=== PATIENT | male | born 1965 ===

== ENCOUNTER 2021-07-29 09:53 | Inpatient (IN) | payer BC, SELFPAY ==
[2021-07-29] VITALS (37 sets, daily range): BP systolic 101–157; BP diastolic 54–106; PULSE 69–83; RESP 7–21; TEMP 36.3–37.1; O2SAT 98–100
--- NOTE | ~2021-07-29 | US_ITS ---
EXAMINATION: US carotid duplex BI DATE: 07/29/2021 15:44 INDICATION: Confusion. TECHNIQUE: Grayscale, color Doppler, and pulsed Doppler images of the cervical carotid arteries were obtained. The degree of vessel stenosis is placed in one of the following categories: normal, <50%, 5 0-69%, >=70% but less than near-occlusion, near-occlusion, or total occlusion. Note that percent sten osis relative to normal distal artery lumen diameter is indirectly measured from velocity measurement s as described by Adi, et al. Radiology 2003; 229:340-346. Notes: Normal: Peak systolic velocity <125 centimeters/sec and no plaque <50%. Peak systolic velocity <125 ( EDV <40; ICA/CCA PSV ratio <2.0; used these factors only a tandem lesions or low cardiac output or co ntralateral disease) 50-69 %: PSV 125-230 (EDV 40-100; ratio 2-4) >= 70% but less than near occlusion: PSV greater than 230 (EDV > 100; ratio> 4.0) Near Occlusion: PSV that is variable; markedly narrowed lumen Occlusion: Absent flow on color/spectral Doppler and no lumen on kat scale. COMPARISON: None. FINDINGS: RIGHT: The right common carotid artery (CCA) peak systolic velocity (PSV) is 74 cm/s. The right internal car otid artery (ICA) PSV is 66 cm/s. The right ICA end-diastolic velocity (EDV) is 29 cm/s. The right IC A/CCA PSV ratio is 0.9. The external carotid artery (ECA) PSV is 46 cm/s. There is antegrade flow in the right vertebral artery. LEFT: The left CCA PSV is 79 cm/s. The left ICA PSV is 51 cm/s. The left ICA EDV is 23 cm/s. The left ICA/C CA PSV ratio is 0.7. The ECA PSV is 39 cm/s. There is antegrade flow in the left vertebral artery. IMPRESSION: 1. Less than 50% stenosis in the right internal carotid artery by sonographic criteria. 2. Less than 50% stenosis in the left internal carotid artery by sonographic criteria. Reviewed, dictated and finalized at location A. SPRING BARREL ASSEMBLY CLEANER IMPRESSION: 1. Less than 50% stenosis in the right internal carotid artery by sonographic rickey diaz. 2. Less than 50% stenosis in the left internal carotid artery by sonographic loretta ho.
--- NOTE | ~2021-07-29 | CT_ITS ---
EXAMINATION: CT soft tissue neck chest w DATE: 07/30/2021 08:46 INDICATION: Left neck pain. TECHNIQUE: Computed tomography (CT) of the neck and chest was performed with 75 mL Omnipaque-350 intr avenous contrast. Automated exposure control and iterative reconstruction technique were employed. Th e dose-length product was 1178.35 mGy-cm. COMPARISON: None FINDINGS: CT NECK: There are no pathologically enlarged lymph nodes. There is mild plaque in the proximal inter nal carotid arteries with 0% stenosis relative to normal distal artery lumen diameters. There is muco jesse thickening in the paranasal sinuses. The mastoid air cells are normal. There is moderate cervical spondylosis. CT CHEST: The lungs demonstrate mild atelectasis. A calcified left lung nodule is consistent with old granulomatous disease. No pleural effusion. The heart size is normal. No pericardial effusion. There are gallstones in the gallbladder, which is normal in size. There are no pathologically enlarged lym ph nodes. There is thoracic dextrocurvature and mild spondylosis. IMPRESSION: 1. Moderate cervical spondylosis. 2. Cholelithiasis. No evidence of acute cholecystitis. Reviewed, dictated and finalized at location A. D CENTER ASSISTANT
--- NOTE | ~2021-07-29 | XR_ITS ---
EXAMINATION: XR chest 1V portable DATE: 07/29/2021 13:29 INDICATION: Altered mental status. Fever and dizziness. TECHNIQUE: A single frontal view of the chest was obtained. COMPARISON: None. FINDINGS: A calcified left lung nodule is consistent with old granulomatous disease. No pleural effus ion or pneumothorax. The heart size is normal. IMPRESSION: 1. No acute cardiopulmonary disease. Reviewed, dictated and finalized at location A. ODS STUDY ANALYST
--- NOTE | ~2021-07-29 | MR_ITS ---
EXAMINATION: MR brain/brain stem wo/w con DATE: 07/30/2021 08:30 INDICATION: Altered mental status. TECHNIQUE: Magnetic resonance imaging (MRI) of the brain and brainstem was performed without and with 20 mL MultiHance intravenous contrast. Sequences included sagittal and axial T1-weighted FSE, axial diffusion-weighted FS EPI, axial T2*-weighted GRE, axial T2-weighted FLAIR Propeller, and axial T2-we ighted Propeller. Postcontrast sequences included axial and coronal T1-weighted FSE. Apparent diffusi on coefficient (ADC) maps were created. COMPARISON: Head CT 07/29/2021 FINDINGS: There is no intracranial hemorrhage, acute infarction, or abnormal intracranial mass lesion . The ventricles are normal in size. There is mucosal thickening in the paranasal sinuses. The mastoi d air cells are normal. The orbits are normal. IMPRESSION: 1. Normal brain. Reviewed, dictated and finalized at location A. DCAST NEWS PRODUCER IMPRESSION: 1. Normal brain.
--- NOTE | ~2021-07-29 | CT_ITS ---
EXAMINATION: CTA brain carotid DATE: 07/30/2021 19:24 INDICATION: Neck pain. Altered mental status. TECHNIQUE: Computed tomographic angiography (CTA) of the head was performed without and with 100 mL O mnipaque-350 intravenous contrast. CTA of the neck was performed with intravenous contrast. Automated exposure control and iterative reconstruction technique were employed. The dose-length product was 1 930.69 mGy-cm. Maximum intensity projection and volume rendered 3D-reconstructions were created by annalee ruiz technologist on a separate workstation. COMPARISON: Head CT 07/29/2021, brain MRI 07/30/2021 FINDINGS: HEAD CTA: There is no intracranial hemorrhage, acute infarction, or abnormal intracranial mass lesion . The ventricles are normal in size. There is mucosal thickening in the paranasal sinuses. The orbits are normal. The mastoid air cells are normal. The vertebral arteries are codominant. There is no sig nificant stenosis of basilar artery or the posterior cerebral arteries. There is no significant steno sis of the intracranial internal carotid arteries or anterior or middle cerebral arteries. The sales and service agent ior communicating arteries are normal. Anterior communicating artery is normal. There is no aneurysm. NECK CTA: There are no pathologically enlarged lymph nodes. There is no significant stenosis of the v ertebral arteries. There is no visible plaque in the proximal internal carotid arteries. There is 0% stenosis of the proximal right internal carotid artery relative to normal distal artery lumen diamete r (NASCET criteria). There is 0% stenosis of the proximal left internal carotid artery relative to no rmal distal artery lumen diameter. There is mild cervical spondylosis. IMPRESSION: 1. Normal brain. No aneurysm or significant intracranial arterial stenosis. 2. 0% stenosis of the proximal internal carotid arteries relative to normal distal artery lumen diame ters (NASCET criteria). Reviewed, dictated and finalized at location A. FARMER IMPRESSION: 1. Normal brain. No aneurysm or significant intracranial arterial stenosis. 2. 0% stenosis of the proximal internal carotid arteries relative to normal dis nisha artery lumen diameters (NASCET criteria).
--- NOTE | ~2021-07-29 | XR_ITS ---
EXAMINATION: XR lumbar puncture diagnostic DATE: 07/30/2021 09:16 INDICATION: Fever. Altered mental status. TECHNIQUE: The procedure including the risks, benefits, and alternatives was discussed with the patie nt. Risks discussed included spinal headache, cerebrospinal fluid leak, bleeding, and infection. The patient understood the risks and agreed to proceed. A timeout was performed to verify the patient' s name, date of , and procedure to be performed. The skin overlying the L4-L5 level was prepped and draped in usual sterile fashion. Subcutaneous 1% lidocaine was used for local anesthesia. A 20 gauge spinal needle was advanced under fluoroscopic guidance. The needle was removed and the entry s ite was cleaned and dressed. There were no immediate complications. Fluoroscopy exposure time was 0. 1 minutes. The total number of images was 1. FINDINGS: There are changes of anterior and posterior fusion procedures from L4 to S1. Real-time fluo roscopy demonstrates the needle at the L4-L5 level. The opening pressure was 13 cm water (Normal rang e is variably defined as 6-20 cm water and up to 25 cm water in obese patients. Pressure >25 cm water is one of the modified Dandy criteria for idiopathic intracranial hypertension). 14 mL of fluid was collected in 4 tubes. The first tube was blood-tinged. IMPRESSION: 1. Successful fluoro-guided lumbar puncture with traumatic tap. Reviewed, dictated and finalized at location A. RN
--- NOTE | ~2021-07-29 | CT_ITS ---
EXAMINATION: CT brain wo con EXAM DATE: 07/29/2021 11:08 INDICATION: Dizziness. Altered mental status. TECHNIQUE: Spiral CT of the head was performed without contrast. Axial, coronal and sagittal images were reviewed. The dose-length product (DLP) for this examination was 681.00 mGy-cm. The exposure w as tailored according to patient size, and iterative reconstruction (ASIR) was used as additional dos e reduction technique. There is no prior study for comparison. FINDINGS: There is no acute intraparenchymal hemorrhage. No evidence of intraparenchymal brain mass lesion. No evidence of acute infarction. There is no mass effect or midline shift. The ventricles are normal in size. There are no extra-axial collections. There are no acute calvarial fractures. T he orbits are unremarkable. Soft tissue is unremarkable. There is right maxillary sinus window proc edure. Scattered ethmoid and maxillary retention cysts or polyps. IMPRESSION: 1. No acute intracranial findings. Reviewed, dictated and finalized at location B. Y PLAN SALES CONSULTANT
--- NOTE | 2021-07-29 10:16 | ED.GENADULT ---
HPI - General Adult General Chief complaint: Altered Mental Status Stated complaint: flu like symptoms Time Seen by Provider: 07/29/21 10:04 History of Present Illness HPI narrative: Patient is a 56-year-old male who presents ER with acute alteration mental status. Patient awoke this morning with fever. He went to work. While at work family was contacted due to him being confused. He is not oriented to date. He also was getting lost within the work facility that he has been at for 12 years. Family reports patient has had some increased forgetfulness and confusion over the last 1 to 2 months. No specific examples given. No history of dementia and family at the early age. No drug or alcohol use. No known sick contacts. Does report recent cough but no exertional shortness of breath or chest pain. No urinary symptoms. Related Data Home Medications Medication Instructions Recorded Confirmed No Home Medications 11/20/19 07/29/21 Allergies Allergy/AdvReac Type Severity Reaction Status Date / Time Penicillins Allergy Swelling Verified 07/29/21 10:53 of Lip/Tongue/Throat Review of Systems Review of Systems: All systems reviewed & are unremarkable except as noted in HPI and below ROS unobtainable: Yes other (Mild limitation due to confusion.) Constitutional: Constitutional: Denies chills, Reports fatigue and Reports fever(s) ENT: Denies nasal congestion and Denies sore throat Cardiovascular: Cardiovascular: Denies chest pain, Denies rapid heart rate and Denies radiating jaw, neck or arm pain Respiratory: Respiratory: Reports cough and Denies dyspnea Neurologic: Reports confusion, Denies headache(s), Denies focal weakness and Denies numbness PMFSH Past Medical History Medical History (Updated 07/29/21 @ 14:18 by Leon Fabian MD) Healthy male adult Surgical History Surgical History (Updated 07/29/21 @ 14:16 by Leon Fabian MD) No history of previous surgery Social History Social History (Updated 07/29/21 @ 14:16 by Leon Fabian MD) Smoking status: Never smoker Exam Narrative: GENERAL: Well-appearing, well-nourished, and in no acute distress. HEAD: Normocephalic, atraumatic. EYES: PERRL and EOMI. CHEST: Clear to auscultation. No respiratory distress. HEART: Regular rate and rhythm. Normal peripheral pulses. ABDOMEN: Soft, nontender, nondistended. EXTREMITIES: Normal range of motion. No edema. SKIN: Warm, dry, no rash. NEURO: No focal deficits. Alert and oriented x2-3. Originally did not know month/date/year and had read it off the wall. He has since been able to remember it. PSYCH: Normal mood and affect. Course Course Emergency Course: Admit for observation. Patient could have early dementia that may have been exacerbated by recent febrile illness. Will add on Covid evaluation. Patient also potentially have TIA/TGA. Will obtain MRI. Keep on telemetry. Vital Signs Vital signs: Vital Signs Temperature 98.8 F 07/29/21 10:38 Pulse Rate 76 07/29/21 10:38 Respiratory Rate 18 07/29/21 10:38 Blood Pressure 141/94 H 07/29/21 10:38 Pulse Oximetry 98 07/29/21 10:38 Temperature 98.8 F 07/29/21 10:38 Pulse Rate 74 07/29/21 15:45 Respiratory Rate 11 L 07/29/21 15:45 Blood Pressure 136/88 07/29/21 15:45 Pulse Oximetry 98 07/29/21 15:45 Medical Decision Making Vital Signs Vital Signs: Vital Signs Temperature 98.8 F 07/29/21 10:38 Pulse Rate 76 07/29/21 10:38 Respiratory Rate 18 07/29/21 10:38 Blood Pressure 141/94 H 07/29/21 10:38 Pulse Oximetry 98 07/29/21 10:38 Temperature 98.8 F 07/29/21 10:38 Pulse Rate 74 07/29/21 15:45 Respiratory Rate 11 L 07/29/21 15:45 Blood Pressure 136/88 07/29/21 15:45 Pulse Oximetry 98 07/29/21 15:45 Lab Data Result diagrams: 07/29/21 10:50 07/29/21 10:50 Labs: Lab Results 07/29/21 07/29/21 07/29/21 Range/Units 10:49 10
--- NOTE | 2021-07-29 10:37 | ECG_ITS ---
Measurements Intervals Advance Rate: 74 P: 10 CT: 146 QRS: 3 QRSD: 100 T: 34 QT: 395 QTc: 438 Interpretive Statements SINUS RHYTHM BASELINE ARTIFACT- II, III, AVR, AVF, V3-V6 NORMAL ECG Electronically Signed On 07-29-2021 11:00:15 TAPROOM ATTENDANT by Paul Ortiz D.O.
[2021-07-29 11:03] LABS: Basophils Absolute Auto 0.1 K/mm3 (0.0-0.1); Basophils Percent Auto 0.8 % (0.2-1.2); Eosinophils Absolute Auto 0.3 K/mm3 (0-0.3); Eosinophils Percent Auto 3.1 % (0-4.4); Hematocrit 52.6 % (42.0-52.0); Hemoglobin 18.1 g/dL (14.0-18.0); Immature Granulocyte Absolute 0.02 K/mm3 (0.00-0.031); Immature Granulocyte Percent A 0.2 % (0-0.5); Lymphocytes Percent Auto 21.8 % (18.3-44.2); Mean Corpuscular HGB Conc 34.4 g/dl (32-36); Mean Corpuscular Volume 92.9 fl (80-100); Mean Platelet Volume 9.5 fl (7.4-10.4); Monocytes Percent Auto 11.3 % (2.6-8.5); Neutrophils Absolute Auto 5.5 K/mm3 (1.3-6.7); Neutrophils Percent Auto 62.8 % (45.5-73.1); Platelet Count Result 276 k/mm3 (150-375); Red Blood Count 5.66 M/mm3 (4.6-6.20); Red Cell Distribution Width 13.4 % (11.5-14.5); White Blood Count 8.7 K/mm3 (4.5-10.0)
[2021-07-29 11:05] LABS: Prothrombin Time 12.8 Seconds (11.1-14.7)
[2021-07-29 11:06] LABS: Partial Thromboplastin Time 27.3 SECONDS (22.3-36.8)
[2021-07-29 11:07] LABS: Alanine Aminotransferase 35 U/L (4-50); Albumin Level 4.4 g/dL (3.5-5.1); Alkaline Phosphatase 81 U/L (38-126); Anion Gap 7 mmol/L (8-16); Aspartate Amino Transferase 33 U/L (17-59); Bilirubin,Total 0.9 mg/dL (0.2-1.3); Blood Urea Nitrogen 12 mg/dL (9-20); Calcium 9.4 mg/dL (8.4-10.2); Carbon Dioxide 24 mmol/L (22-30); Chloride 107 mmol/L (98-107); Estimated CRCL calculation 114 ml/min; Estimated Glomerular Filt Rate > 60; Glucose 99 mg/dL (65-110); Potassium 3.9 mmol/L (3.4-5.0); Sodium 138 mmol/L (137-145)
[2021-07-29 11:16] LABS: Add Urine Microscopic? NO; Appearance Urine Clear (Clear); Bilirubin Urine Negative (Negative); Blood Urine Negative (Negative); Color Urine Yellow (Yellow); Glucose Urine UA Negative (Negative); Ketones Urine Negative (Negative); Leukocyte Esterase Ur Negative LEU/UL (Negative); Nitrate Urine Negative (Negative); Protein Urine Negative (Negative); Specific Grav Ur 1.015 (1.001-1.035); Urobilinogen Urine Negative mg/dL (<2.0)
[2021-07-29] MEDS: SODIUM CHLORIDE 0.9% IV 1,000 ML 999 ML IV CONT (11:53)
--- NOTE | 2021-07-29 17:32 | PM.IMHP ---
H&P: HPI History of Present Illness Date/Time: 07/29/21 17:32 Is a 56-year-old male who came to the emergency room with altered mental status. The patient self reports fever for the last couple days. The patient got up and went to work today and felt confused when he went to work. The patient stated that he cannot recall what happened to him during the whole work week. The patient was getting loss within his work facility and he has been working there for last 12 years. Patient has no history of any dementia. He has had no sick contacts. H&H is 18.1 and 52.6. COVID testing is pending. Carotid Dopplers less than 50% stenosis in the right and left internal carotid artery. Chest x-ray was read as no acute cardiopulmonary disease. Head CT was read as no acute intracranial findings. The patient was started on IV fluids. The patient does not have a fever and was tested negative for influenza. The patient is being admitted for observation status on 07/29/2021. Chief Complaint: Confusion Review of Systems Review of Systems: All systems reviewed & are unremarkable except as noted in HPI and below Constitutional: Constitutional: Reports as per HPI and Reports no additional constitutional complaints Eyes: Eyes: Reports as per HPI and Reports no additional eye complaints ENT: Reports system reviewed and no additional complaints, except as documented and Reports Normal hearing present Cardiovascular: Cardiovascular: Reports no additional cardiovascular complaints Respiratory: Respiratory: Reports no additional respiratory complaints and Reports no additional respiratory complaints Gastrointestinal: Gastrointestinal: Reports as per HPI and Reports no additional gastrointestinal complaints Musculoskeletal: Musculoskeletal: Reports no additional musculoskeletal complaints Integumentary/Breasts: Skin/Breast: Reports system reviewed and no additional complaints, except as docu and Reports as per HPI Neurologic: Reports system reviewed and no additional complaints, except as documented, Reports as per HPI and Reports Normal hearing present Psychiatric: Psychiatric: Reports no additional psychiatric complaints and Reports as per HPI Endocrine: Endocrine: Reports no additional endocrine complaints Hematologic/Lymphatic: Hematologic/Lymphatic: Reports no additional hematologic/lymphatic complaints Allergic/Immunologic: Allergic/Immunologic: Reports no additional allergic/immunologic complaints [facility] Past Medical History Medical History Healthy male adult Surgical History Surgical History (Updated 07/29/21 @ 18:02 by Shilpi Aleman NP) History of back surgery L1 through L5 he has a cage. Family History Family History (Updated 07/29/21 @ 18:03 by Shilpi Aleman NP) Mother Cancer Father Hypertension Social History Social History (Updated 07/29/21 @ 18:05 by Shilpi Aleman NP) Social History: the patient is and lives with his he has 3 children. 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 The patient is a lifelong nonsmoker. No alcohol marijuana or Illicit drugs. Code status full code Smoking status: Never smoker Meds Home Medications and Allergies Home Medications Medication Instructions Recorded Confirmed Type No Home Medications 11/20/19 07/29/21 History Allergies Allergy/AdvReac Type Severity Reaction Status Date / Time Penicillins Allergy Swelling Verified 07/29/21 10:53 of Lip/Tongue/Throat Vital Signs Vital Signs - 24 hr 07/29/21 10:38 07/29/21 10:57 07/29/21 11:00 Temperature 37.1 C Pulse Rate 79 Respiratory Rate 17 Blood Pressure 124/102 H Pulse Oximetry 98 98 99 07/29/21 11:01 07/29/21 11:11 07/29/21 11:16 Temperature Pulse Rate 80 78 Respiratory Rate 10 L 11 L Blood Pressure 121/87 135/78 127/95 H P
--- NOTE | 2021-07-29 17:55 | PC.NURSE ---
was asked to xccplete MRI screening form for MRI, unable to d/t acuity of other patients. will try when i have a minute
[2021-07-29] MEDS: SODIUM CHLORIDE 0.9% IV 1,000 ML 100 ML IV CONT (18:43)
[2021-07-30] VITALS (7 sets, daily range): BP systolic 104–144; BP diastolic 58–104; PULSE 71–79; RESP 12–20; TEMP 36.6–36.9; O2SAT 96–99
--- NOTE | 2021-07-30 | ECHO_ITS ---
Patient Info Name: Shola Lebron Age: 56 years : 1965 Gender: Male Ht: 72 in Wt: 249 lbs BSA: 2.43 m2 HR: 75 bpm BP: 144 / 90 mmHg Exam Date: 07/30/2021 3:00 PM Exam Location: [facility] Patient Status: Outpatient Admit Date: 07/29/2021 Staff Ordering Physician: Shilpi Aleman NP Operation Shift Supervisor: Chris Jarrell RDCS, RT Attending Provider: Tyler Vivas MD Referring Physician: Ash CHRIS; Exam Type: CA echo doppler color flow Study Info Indications R42 - Dizziness and giddiness Complete two-dimensional, color flow and Doppler transthoracic echocardiogram is performed. Summary 1. Complete two-dimensional, color flow and Doppler transthoracic echocardiogram is performed. 2. Left ventricular chamber dimension is normal. 3. Left ventricular systolic function is normal, estimated at 60-65%. 4. There is mildly increased left ventricular wall thickness. 5. The left ventricular diastolic function is grade I diastolic dysfunction. 6. E/e' 5 is not elevated. 7. The aortic root size at the sinus of Valsalva is moderately dilated at 4.6 cm. Left Ventricle E/e' 5 is not elevated. Left ventricular chamber dimension is normal. Left ventricular systolic function is normal, estimated at 60-65%. There is mildly increased left ventricular wall thickness. The left ventricular diastolic function is grade I diastolic dysfunction. Right Ventricle Right ventricular chamber dimension is normal. Right ventricular systolic function is normal. Left Atria Left atrial chamber dimension is normal. Right Atria Right atrial chamber dimension is normal. Aortic Valve The aortic valve is trileaflet. There is no aortic valve stenosis. There is no aortic valve regurgitation. Pulmonic Valve There is no pulmonic regurgitation. Mitral Valve There is no mitral valve stenosis. There is no mitral valve regurgitation. Tricuspid Valve There is no tricuspid valve regurgitation. Pericardium/Pleural There is no pericardial effusion. Inferior Vena Cava Normal inferior vena cava with >50% collapse upon inspiration consistent with normal right atrial pressure, 5 mmHg. Aorta The aortic root size at the sinus of Valsalva is moderately dilated at 4.6 cm. Left Ventricular Outflow Tract Name Value Normal LVOT 2D LVOT Diameter 2.1 cm LVOT Doppler LVOT Peak Gradient 3 mmHg LVOT Mean Gradient 2 mmHg LVOT VTI 14 cm LVOT VTI/AV VTI Ratio 0.7 LVOT Stroke Volume 51 ml Mitral Valve Name Value Normal MV Doppler MV Decel Sweet [place] 167 cm/s2 MV PHT 70 ms MV Area (PHT) 3.2 cm2 4.0-5.0 MV Diastolic Function ----
--- NOTE | 2021-07-30 07:43 | PM.IMPN ---
Progress Note: A&P Assessment and Plan (1) Altered mental status: Code(s): R41.82 - Altered mental status, unspecified Status: Acute Assessment and Plan: Patient brought to the emergency room cause of confusion. Patient had fever prior to admission but not documented here. UA negative. Chest x-ray negative. CT of the brain showing no acute findings. COVID testing in process. Carotid ultrasound showing less than 50% stenosis. Consider lymphoma given physical findings. 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 Will proceed with a CT of the neck and chest. MRI of the brain has already been ordered. Blood cultures are pending. Echocardiogram is ordered. 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 Consider dehydration and/ or chronic hypoxia from undiagnosed sleep apnea. check ApneaLink. Repeat CBC. (4) DVT prophylaxis: Code(s): Z29.9 - Encounter for prophylactic measures, unspecified Status: Acute Assessment and Plan: SCDs Subjective Date/time seen: 07/30/21 07:43 Interval history: 56yo healthy male here for AMS and fever. Patient complains of headache this morning this was not of presenting complaint. 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 He had fever prior to admission not documented here. He denies feeling confused today. He has city water. No GI symptoms. He has 2 dogs but no exposures to farm animals or birds . No recent travel. No night sweats. No weight loss. He has been seeing a chiropractor for his neck pain. Exam Narrative: AF 97.8 104/58 79 17 98% ra Gen - NARD lying flat in bed HEENT - ncat. mmm. no oral lesions. Neck - left posterior cervical lymphadenopathy. No cervical or supraclavicular adenopathy appreciated. Chest - CTA bilaterally, nml RR CV - RRR S1/S2. No murmurs, gallops or rubs. Abd - Soft, NT/ND, Positive BS Ext - No pedal edema. 2+ DP pulses bilaterally. Neuro - Alert and orientedx4. Nonfocal exam. Positive Kernig sign but negative Brudzinski. Psych - Nml mood and affect Skin - Warm and dry. No rashes. Objective Data Vital Signs Vital Signs: Vital Signs - 24 hr 07/29/21 10:38 07/29/21 10:57 07/29/21 11:00 Temperature 98.8 F Pulse Rate 79 Respiratory Rate 17 Blood Pressure 124/102 H Pulse Oximetry 98 98 99 07/29/21 11:01 07/29/21 11:11 07/29/21 11:16 Temperature Pulse Rate 80 78 Respiratory Rate 10 L 11 L Blood Pressure 121/87 135/78 127/95 H Pulse Oximetry 99 100 98 07/29/21 11:17 07/29/21 11:30 07/29/21 11:31 Temperature Pulse Rate 78 74 80 Respiratory Rate 18 14 21 H Blood Pressure 139/90 Pulse Oximetry 99 100 98 07/29/21 11:45 07/29/21 11:46 07/29/21 11:47 Temperature Pulse Rate 73 73 75 Respiratory Rate 15 16 15 Blood Pressure 157/106 H Pulse Oximetry 99 99 99 07/29/21 12:00 07/29/21 12:01 07/29/21 12:26 Temperature Pulse Rate 73 83 73 Respiratory Rate 9 L 14 11 L Blood Pressure 137/103 H Pulse Oximetry 100 99 99 07/29/21 12:30 07/29/21 12:31 07/29/21 12:53 Temperature Pulse Rate 71 81 74 Respiratory Rate 14 13 20 Blood Pressure 137/96 H Pulse Oximetry 100 99 100 07/29/21 13:00 07/29/21 13:01 07/29/21 13:15 Temperature Pulse Rate 73 71 72 Respiratory Rate 7 L 14 13 Blood Pressure 141/103 H Pulse Oximetry 100 100 100 07/29/21 13:16 07/29/21 13:33 07/29/21 14:10 Temperature Pulse Rate 72 76 74 Respiratory Rate 11 L 11 L 12 Blood Pressure 127/97 H 146/99 H Pulse Oximetry 100 100 100 07/29/21 14:16 07/29/21 15:45 07/29/21 16:00 Temperature Pulse Rate
[2021-07-30 08:09] LABS: Basophils Absolute Auto 0.1 K/mm3 (0.0-0.1); Basophils Percent Auto 0.8 % (0.2-1.2); Eosinophils Absolute Auto 0.4 K/mm3 (0-0.3); Eosinophils Percent Auto 4.7 % (0-4.4); Hematocrit 51.5 % (42.0-52.0); Hemoglobin 17.6 g/dL (14.0-18.0); Immature Granulocyte Absolute 0.03 K/mm3 (0.00-0.031); Immature Granulocyte Percent A 0.3 % (0-0.5); Lymphocytes Absolute Auto 2.45 K/mm3 (0.9-3.2); Lymphocytes Percent Auto 28.4 % (18.3-44.2); Mean Corpuscular HGB Conc 34.2 g/dl (32-36); Mean Corpuscular Hemoglobin 32.6 pg (26-34); Mean Corpuscular Volume 95.4 fl (80-100); Mean Platelet Volume 9.7 fl (7.4-10.4); Monocytes Absolute Auto 0.9 K/mm3 (0.1-0.6); Monocytes Percent Auto 9.8 % (2.6-8.5); Neutrophils Absolute Auto 4.8 K/mm3 (1.3-6.7); Platelet Count Result 252 k/mm3 (150-375); Red Cell Distribution Width 13.5 % (11.5-14.5); White Blood Count 8.6 K/mm3 (4.5-10.0)
[2021-07-30 08:22] LABS: Lactic Acid Reflex 1.2 mmol/L (0.7-2.1)
[2021-07-30 09:38] LABS: Alanine Aminotransferase 32 U/L (4-50); Alkaline Phosphatase 61 U/L (38-126); Anion Gap 6 mmol/L (8-16); Aspartate Amino Transferase 32 U/L (17-59); Bilirubin,Total 1.4 mg/dL (0.2-1.3); Blood Urea Nitrogen 13 mg/dL (9-20); Calcium 8.8 mg/dL (8.4-10.2); Carbon Dioxide 26 mmol/L (22-30); Chloride 104 mmol/L (98-107); Estimated CRCL calculation 114 ml/min; Estimated Glomerular Filt Rate > 60; Glucose 94 mg/dL (65-110); Lactate Dehydrogenase 421 U/L (313-618); Magnesium 2.1 mg/dL (1.6-2.3); Potassium 4.4 mmol/L (3.4-5.0); Sodium 136 mmol/L (137-145)
[2021-07-30] MEDS: SODIUM CHLORIDE 0.9% IV 1,000 ML 100 ML IV CONT (10:27)
[2021-07-30 10:46] LABS: SARS-CoV-2 RNA PCR Negative (Negative)
[2021-07-30 11:14] LABS: Appearance CSF Clear (Clear); CSF source CSF; Color CSF Colorless (Colorless)
[2021-07-30 11:15] LABS: Lymphocytes CSF 75 % (40-80); Monocytes CSF 16 % (15-45); Neutrophils CSF 9 % (0-6)
[2021-07-30 11:16] LABS: Nucleated Cell CSF 2 /uL (0-5)
[2021-07-30 11:18] LABS: Red Blood Cell CSF 72 (0-2)
[2021-07-30 11:40] LABS: Glucose CSF 57 mg/dL (40-70); Total Protein CSF 65 mg/dL (12-60)
--- NOTE | 2021-07-30 14:03 | WPDNEURCNPN ---
Assessment and Plan Additional Plan complaints of confusion with negative general and neurological, examination, negative CT scan of the head\ CSF opening pressure was 13 on spinal tap and fluid with 72 RBCs but CSF protein 65 with glucose of 57 MRI is negative will obtain CTA to rule out the possibility of aneurysm,cta of brain ordered to r/o aneurysm Consult date: 07/30/21 HPI: Shola Lebron is a 56 year old male has been admitted to [facility] through the emergency room for the complaints of change in the mental status patient reported having the fever for the last 48 hours and on day of admission he got up and went to work felt confuse but could not recall exactly what has happened during the whole work week he was getting lost within the work facility though he has been working there for the last 12 years and also he has no history of preceding diagnosis of dementia, his initial hemoglobin was 18.1 COVID testing was pending Doppler study of the carotid revealed less than 50% stenosis bilaterally chest x-ray was negative CT scan of the head was negative patient was started on the IV fluids and he was noted to have no fever he also tested negative for influenza, past history is consistent with surgery on the back L1 through L5 with a cage and he is allergic to penicillin was not taking any medications at home Review of Systems Review of Systems: All systems reviewed & are unremarkable except as noted in HPI and below PMFSH Past Medical History Medical History Healthy male adult Surgical History Surgical History History of back surgery L1 through L5 he has a cage. Family History Family History Mother Cancer Father Hypertension Social History Social History Social History: the patient is and lives with his he has 3 children. 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 his is the durable power employment attorney for healthcare. The patient is a lifelong nonsmoker. No alcohol marijuana or Illicit drugs. Code status full code Smoking status: Never smoker Alcohol intake: never Substance use: never Substance use type: does not use Spiritual care concerns: No Meds Home Medications and Allergies Home Medications Medication Instructions Recorded Confirmed Type No Home Medications 11/20/19 07/29/21 History Allergies Allergy/AdvReac Type Severity Reaction Status Date / Time Penicillins Allergy Swelling Verified 07/29/21 18:52 of Lip/Tongue/Throat Vital Signs Vital Signs - 24 hr 07/29/21 14:10 07/29/21 14:16 07/29/21 15:45 Temperature Pulse Rate 74 70 74 Respiratory Rate 12 7 L 11 L Blood Pressure 146/99 H 138/94 H 136/88 Pulse Oximetry 100 100 98 07/29/21 16:00 07/29/21 16:15 07/29/21 16:30 Temperature Pulse Rate 76 78 70 Respiratory Rate 10 L 14 9 L Blood Pressure Pulse Oximetry 99 98 100 07/29/21 16:45 07/29/21 17:16 07/29/21 17:17 Temperature Pulse Rate 69 Respiratory Rate 17 Blood Pressure 121/91 H Pulse Oximetry 98 98 99 07/29/21 17:30 07/29/21 17:31 07/29/21 18:35 Temperature 36.3 C L Pulse Rate 80 Respiratory Rate 12 Blood Pressure 130/74 134/80 Pulse Oximetry 99 99 99 07/29/21 21:42 07/29/21 23:28 07/30/21 00:00 Temperature 36.6 C 36.6 C Pulse Rate 71 71 78 Respiratory Rate 17 18 Blood Pressure 101/54 L 135/83 Pulse Oximetry 100 98 07/30/21 04:00 07/30/21 04:31 07/30/21 08:43 Temperature 36.6 C Pulse Rate 78 79 77 Respiratory Rate 17 16 Blood Pressure 104/58 L 134/104 H Pulse Oximetry 98 98 07/30/21 09:08 Temperature Pulse Rate 71 Respiratory Rate 20 Blood Pressure 144/90 H Pulse Oximetry 96 Exam Const: General: cooperative, healthy appearing and acute distress
[2021-07-30 18:08] LABS: Barbiturate Screen Urine Negative (Negative); Benzodiazepines Screen Urine Negative (Negative)
[2021-07-30 18:13] LABS: Amphetamine Screen Urine Negative (Negative); Cocaine Screen Urine Negative (Negative); Methadone Screen Urine Negative (Negative); Opiate Screen Urine Negative (Negative); Phencyclidine Screen Urine Negative (Negative)
[2021-07-30 18:19] LABS: Cannabinoid Screen Urine Negative (Negative)
[2021-07-30] MEDS: ACETAMINOPHEN 325 MG TABLET 650 MG PO (22:55)
[2021-07-31 00:05] VITALS: O2SAT 99
[2021-07-31] MEDS: SODIUM CHLORIDE 0.9% IV 1,000 ML 100 ML IV CONT (01:05)
[2021-07-31 04:00] VITALS: PULSE 89
[2021-07-31 05:31] VITALS: BP 108/61; PULSE 94; RESP 18; TEMP 37.2; O2SAT 96
[2021-07-31 07:00] LABS: Hematocrit 49.3 % (42.0-52.0); Hemoglobin 17.5 g/dL (14.0-18.0); Mean Corpuscular HGB Conc 35.5 g/dl (32-36); Mean Corpuscular Hemoglobin 32.3 pg (26-34); Mean Corpuscular Volume 91.1 fl (80-100); Mean Platelet Volume 9.4 fl (7.4-10.4); Platelet Count Result 281 k/mm3 (150-375); Red Blood Count 5.41 M/mm3 (4.6-6.20); Red Cell Distribution Width 12.6 % (11.5-14.5); White Blood Count 14.4 K/mm3 (4.5-10.0)
[2021-07-31 07:08] LABS: Anion Gap 11 mmol/L (8-16); Blood Urea Nitrogen 15 mg/dL (9-20); Calcium 8.9 mg/dL (8.4-10.2); Carbon Dioxide 18 mmol/L (22-30); Chloride 106 mmol/L (98-107); Estimated CRCL calculation 129 ml/min; Estimated Glomerular Filt Rate > 60; Glucose 188 mg/dL (65-110); Potassium 4.3 mmol/L (3.4-5.0); Sodium 135 mmol/L (137-145)
[2021-07-31 08:00] VITALS: PULSE 88; RESP 18; O2SAT 96
--- NOTE | 2021-07-31 09:18 | PM.IMPN ---
Progress Note: A&P Assessment and Plan (1) Acute bacterial meningitis: Code(s): G00.9 - Bacterial meningitis, unspecified Status: Acute Assessment and Plan: LP performed 07/30 showing 72R, 2W (9% N, 75%L, 16%M), nml glucose with protein of 65. Gram stain showing rare gram positive cocci and rare WBCs. Pathology shows few lymphocytes and monocytes but negative for acute inflammation and malignant cells. LP not consistent with bacterial meningitis patient was started on broad-spectrum IV antibiotics for positive Gram stain. CSF culture pending. Blood cultures no growth today. CTA head/neck performed due to the CSF blood but CTA negative for aneurysm or bleed. Continue broad-spectrum IV antibiotics. Dexamethasone to be continued for 4 days unless bacteria something other than S.pneumoniae (2) Altered mental status: Code(s): R41.82 - Altered mental status, unspecified Status: Acute Assessment and Plan: Patient brought to the emergency room because of confusion. Patient had fever prior to admission but not documented here. UA negative. Chest x-ray negative. MR brain showing no acute findings. COVID testing negative. Carotid ultrasound showing less than 50% stenosis. CT neck and chest was negative. Blood cultures are NGTD. Echo EF 60-65%, Grade I diastolic dysfunction. Suspect the altered mental status related to meningits. As above. Appreciate Neurology input (3) Fever: Code(s): R50.9 - Fever, unspecified Status: Acute Assessment and Plan: As above (4) Polycythemia: Code(s): D75.1 - Secondary polycythemia Status: Acute Assessment and Plan: Hemoglobin 18.1 admission. ApneaLink essentially normal. Hgb better today. Stop IV fluids. (5) DVT prophylaxis: Code(s): Z29.9 - Encounter for prophylactic measures, unspecified Status: Acute Assessment and Plan: SCDs Subjective Date/time seen: 07/31/21 09:18 Interval history: 56yo healthy male here for AMS and fever. Slight left posterior headache associated with his persistent left sided neck pain. Eating well without n/v. Up to the chair. Exam Narrative: AF 99.0 108/61 94 18 96% ra Gen - NARD lying flat in bed Neck - left posterior cervical lymphadenopathy. Chest - CTA bilaterally, nml RR CV - RRR S1/S2. Tele showing occas bundle branch but very infrequent Abd - Soft, NT/ND, Positive BS Ext - No pedal edema Psych - Nml mood and affect Skin - Warm and dry. Objective Data Vital Signs Vital Signs: Vital Signs - 24 hr 07/30/21 14:00 07/30/21 22:00 07/31/21 00:05 Temperature 97.9 F 98.4 F Pulse Rate 72 78 Respiratory Rate 12 18 Blood Pressure 107/68 118/71 Pulse Oximetry 99 97 99 07/31/21 04:00 07/31/21 05:31 Temperature 99.0 F Pulse Rate 89 94 Respiratory Rate 18 Blood Pressure 108/61 Pulse Oximetry 96 Intake/Output Intake/Output: Intake & Output 07/28/21 07/29/21 07/30/21 07/31/21 23:59 23:59 23:59 23:59 Intake Total 1000 4500 2250 Output Total 317 721 0683 Balance 200 3900 450 Meds/Results Medications: Active Medications Generic Name Dose Route Start Last Admin Trade Name Freq PRN Reason Stop Dose Admin Acetaminophen 650 mg 07/29/21 13:41 07/30/21 22:55 Acetaminophen 325 Mg Tablet PO 650 mg Q4H PRN Administration Mild Pain (1-3) or Fever Hydrocodone Bitart/Acetaminophen 1 tab 07/29/21 13:41 Hydrocodone/Acetaminophen (*Crx) 5-325 Mg Tablet PO Q4H PRN Pain Rated 4-6 Dexamethasone Sodium Phosphate 17 mg 07/30/21 18:00 07/31/21 08:44 Dexamethasone Sod Phos Inj 10 Mg/Ml 1 Ml Vial 0.15 mg/kg (17 mg) 17 mg IV PUSH Administration Q6HR LETICIA Sodium Chloride 1,000 mls @ 100 mls/hr 07/29/21 18:00 07/31/21 01:05 Normal Saline Iv IV CONT 100 mls/hr .Q10H LETICIA Administration Imipenem/Cilastatin Sodium 1, 250 mls @ 375 mls/hr 07/30/21 18:00 07/31/21 08:47
[2021-07-31] MEDS: ACETAMINOPHEN 325 MG TABLET 650 MG PO (10:40)
[2021-07-31] MEDS: FAMOTIDINE 20 MG TABLET PO ×2 (13:21→20:38)
[2021-07-31 14:00] VITALS: BP 136/81; PULSE 995; RESP 20; TEMP 36.7; O2SAT 97
--- NOTE | 2021-07-31 16:13 | WPDNEUROPN ---
Progress Note: A&P Additional Plan treatment continued as such Subjective Date/time seen: 07/31/21 16:13 56 years old admitted to the hospital for complaints of change in the mental status along with the fever with negative CT scan of the head but abnormal spinal fluid, give MRI, during the abnormal spinal fluid CTA was also done to rule out the possibility of associated aneurysm which was negative at present patient is being treated for unspecified bacterial meningitis with initial complaints of change in the mental status and abnormal spinal fluid Review of Systems Review of Systems: All systems reviewed & are unremarkable except as noted in HPI and below Exam Const: General: cooperative, healthy appearing, comfortable and no acute distress Nutritional Appearance: average body habitus and well nourished Orientation/consciousness: oriented to person, oriented to place and oriented to time Limitations: no limitations HENMT: Head: normal to inspection and normocephalic Ears: hearing grossly normal bilaterally General nose exam: Normal external nose present Face and sinus: normal facial exam Mouth: Yes Normal oral and palatal mucosa present Eyes: General: appearance normal, both eyes and all related structures Visual Martino: normal visual martino by confrontation Alignment and Position: alignment normal Periorbital: periorbital findings normal Eyelids: eyelids normal Conjunctivae: conjunctivae normal Sclera: sclerae normal Cornea: corneas normal Pupils: Equal, round and reactive pupils present EOM: EOMs intact bilaterally Direct Ophthalmoscopy: normal light reflex Neck: Neck: normal visual inspection Chest: Chest palpation & inspection: normal inspection of the chest Resp: Effort & Inspection: normal respiratory effort Auscultation: clear to auscultation bilaterally Cardio: Jugular venous distension: no JVD Rate: regular rate Rhythm: regular rhythm Skin: General skin exam: normal color and no rashes or lesions noted Neuro: General: oriented to person, oriented to place and oriented to time Cranial nerves: Yes CN's II-XII intact bilaterally Cognition (Neuro): normal cognition Speech: normal speech Gait exam (Neuro): Normal gait present Sensory Exam: normal sensation Objective Data Vital Signs Vital Signs: Vital Signs - 24 hr 07/30/21 22:00 07/31/21 00:05 07/31/21 04:00 Temperature 36.9 C Pulse Rate 78 89 Respiratory Rate 18 Blood Pressure 118/71 Pulse Oximetry 97 99 07/31/21 05:31 07/31/21 08:00 07/31/21 14:00 Temperature 37.2 C 36.7 C Pulse Rate 94 88 995 H Respiratory Rate 18 18 20 Blood Pressure 108/61 136/81 Pulse Oximetry 96 96 97 Intake/Output Intake/Output: Intake & Output 07/28/21 07/29/21 07/30/21 07/31/21 23:59 23:59 23:59 23:59 Intake Total 1000 4500 3100 Output Total 909 145 8631 Balance 200 3900 1300 Meds/Results Medications: Active Medications Generic Name Dose Route Start Last Admin Trade Name Freq PRN Reason Stop Dose Admin Acetaminophen 650 mg 07/29/21 13:41 07/31/21 10:40 Acetaminophen 325 Mg Tablet PO 650 mg Q4H PRN Administration Mild Pain (1-3) or Fever Hydrocodone Bitart/Acetaminophen 1 tab 07/29/21 13:41 Hydrocodone/Acetaminophen (*Crx) 5-325 Mg Tablet PO Q4H PRN Pain Rated 4-6 Dexamethasone Sodium Phosphate 17 mg 07/30/21 18:00 07/31/21 12:00 Dexamethasone Sod Phos Inj 10 Mg/Ml 1 Ml Vial 0.15 mg/kg (17 mg) 17 mg IV PUSH Administration Q6HR LETICIA Famotidine 20 mg 07/31/21 09:50 07/31/21 13:21 Famotidine 20 Mg Tablet PO 20 mg Q12HR LETICIA Administration Imipenem/Cilastatin Sodium 1, 250 mls @ 375 mls/hr 07/30/21 18:00 07/31/21 14:04 000 mg/ Dextrose IVPB 375 mls/hr Q6HR LETICIA Administration Vancomycin HCl 2,000 mg in 500 mls @ 250 mls/hr 07/30/21 17:00 07/31/21 16:07 Vancomycin 2,000 Mg/D5w 500 Ml IVPB 250 mls/hr Q12H LETICIA Administration Ondansetron HCl 4 mg 12
[2021-07-31 22:00] VITALS: BP 127/75; PULSE 86; RESP 16; TEMP 37; O2SAT 99
[2021-08-01 05:55] VITALS: BP 121/75; PULSE 78; RESP 18; TEMP 36.7; O2SAT 95
[2021-08-01 07:14] LABS: Anion Gap 9 mmol/L (8-16); Blood Urea Nitrogen 16 mg/dL (9-20); Calcium 9.4 mg/dL (8.4-10.2); Carbon Dioxide 22 mmol/L (22-30); Chloride 107 mmol/L (98-107); Estimated CRCL calculation 114 ml/min; Estimated Glomerular Filt Rate > 60; Glucose 135 mg/dL (65-110); Potassium 4.2 mmol/L (3.4-5.0); Sodium 138 mmol/L (137-145)
--- NOTE | 2021-08-01 12:01 | PM.IMPN ---
Progress Note: A&P Assessment and Plan (1) Acute bacterial meningitis: Code(s): G00.9 - Bacterial meningitis, unspecified Status: Acute Assessment and Plan: Currently being treated for presumptive diagnosis of meningoencephalitis, pending confirmation. LP performed 07/30 showing 72R, 2W (9% N, 75%L, 16%M), nml glucose with protein of 65. Gram stain showing rare gram positive cocci and rare WBCs. Pathology shows few lymphocytes and monocytes but negative for acute inflammation and malignant cells. LP not consistent with bacterial meningitis patient was started on broad-spectrum IV antibiotics for positive Gram stain. CSF culture pending. Blood cultures no growth today. CTA head/neck performed due to the CSF blood but CTA negative for aneurysm or bleed. Continue broad-spectrum IV antibiotics. Dexamethasone to be continued for 4 days unless bacteria something other than S.pneumoniae (2) Altered mental status: Code(s): R41.82 - Altered mental status, unspecified Status: Acute Assessment and Plan: Resolving. Patient was originally brought to the emergency room because of confusion. Patient had fever prior to admission but not documented here. UA negative. Chest x-ray negative. MR brain showing no acute findings. COVID testing negative. Carotid ultrasound showing less than 50% stenosis. CT neck and chest was negative. Blood cultures are NGTD. Echo EF 60-65%, Grade I diastolic dysfunction. (3) Fever: Code(s): R50.9 - Fever, unspecified Status: Acute Assessment and Plan: As above; no fever recorded while inpatient. (4) Polycythemia: Code(s): D75.1 - Secondary polycythemia Status: Acute Assessment and Plan: Hemoglobin 18.1 admission. ApneaLink essentially normal. Hgb better today. Stop IV fluids. (5) DVT prophylaxis: Code(s): Z29.9 - Encounter for prophylactic measures, unspecified Status: Acute Assessment and Plan: SCDs Subjective Date/time seen: 08/01/21 13:00 S: 56-year-old gentleman currently admitted for altered mental status and fever and be evaluated for possible min and go on cephalitis. Reports persist left posterior headache associated with left-sided neck pain. Review of Systems Review of Systems: All systems reviewed & are unremarkable except as noted in HPI and below Constitutional: Constitutional: Reports as per HPI and Reports no additional constitutional complaints Eyes: Eyes: Reports as per HPI and Reports no additional eye complaints ENT: Reports system reviewed and no additional complaints, except as documented and Reports Normal hearing present Cardiovascular: Cardiovascular: Reports no additional cardiovascular complaints Respiratory: Respiratory: Reports no additional respiratory complaints and Reports no additional respiratory complaints Gastrointestinal: Gastrointestinal: Reports as per HPI and Reports no additional gastrointestinal complaints Musculoskeletal: Musculoskeletal: Reports no additional musculoskeletal complaints Integumentary/Breasts: Skin/Breast: Reports system reviewed and no additional complaints, except as docu and Reports as per HPI Neurologic: Reports system reviewed and no additional complaints, except as documented, Reports as per HPI and Reports Normal hearing present Psychiatric: Psychiatric: Reports no additional psychiatric complaints and Reports as per HPI Endocrine: Endocrine: Reports no additional endocrine complaints Hematologic/Lymphatic: Hematologic/Lymphatic: Reports no additional hematologic/lymphatic complaints Allergic/Immunologic: Allergic/Immunologic: Reports no additional allergic/immunologic complaints Exam Narrative: AF 98.1F 121/75 78 18 95% on RA. Gen - NARD lying flat in bed Neck - left posterior cervical lymphadenopathy. Chest - CTA bilaterally, nml RR CV - RRR S1/S2. Tele showing occasional bundle branch but very infrequent Abd - S
[2021-08-01 12:56] LABS: Troponin I < 0.012 ng/mL (0.000-0.034)
[2021-08-01 14:00] VITALS: BP 137/73; PULSE 94; RESP 18; TEMP 36.7; O2SAT 99
[2021-08-01] MEDS: FAMOTIDINE 20 MG TABLET PO ×2 (14:59→20:07)
[2021-08-01 22:00] VITALS: BP 119/76; PULSE 80; RESP 18; TEMP 36.9; O2SAT 99
[2021-08-02 05:44] VITALS: BP 119/74; PULSE 76; RESP 18; TEMP 36.4; O2SAT 95
[2021-08-02 06:09] LABS: Troponin I < 0.012 ng/mL (0.000-0.034)
[2021-08-02 07:35] LABS: Epstein Barr Virus DNA PCR Not Detected (Not Detected); Herpes Simplex Type 1 DNA PCR Not Detected (Not Detected); Herpes Simplex Type 2 DNA PCR Not Detected (Not Detected); Source Epstein Barr Virus CSF
[2021-08-02] MEDS: FAMOTIDINE 20 MG TABLET PO ×2 (08:53→22:09)
--- NOTE | 2021-08-02 10:22 | PM.IMPN ---
Progress Note: A&P Assessment and Plan (1) Acute bacterial meningitis: Code(s): G00.9 - Bacterial meningitis, unspecified Status: Acute Assessment and Plan: Currently being treated for presumptive diagnosis of meningoencephalitis, pending confirmation. LP performed 07/30 showing 72R, 2W (9% N, 75%L, 16%M), nml glucose with protein of 65. Gram stain showing rare gram positive cocci and rare WBCs. Pathology shows few lymphocytes and monocytes but negative for acute inflammation and malignant cells. LP not consistent with bacterial meningitis patient was started on broad-spectrum IV antibiotics for positive Gram stain. CSF culture pending. Blood cultures no growth today. CTA head/neck performed due to the CSF blood but CTA negative for aneurysm or bleed. Continue broad-spectrum IV antibiotics. Dexamethasone to be continued for 4 days unless bacteria something other than S.pneumoniae (2) Altered mental status: Code(s): R41.82 - Altered mental status, unspecified Status: Acute Assessment and Plan: Resolving. Patient was originally brought to the emergency room because of confusion. Patient had fever prior to admission but not documented here. UA negative. Chest x-ray negative. MR brain showing no acute findings. COVID testing negative. Carotid ultrasound showing less than 50% stenosis. CT neck and chest was negative. Blood cultures are NGTD. Echo EF 60-65%, Grade I diastolic dysfunction. (3) Fever: Code(s): R50.9 - Fever, unspecified Status: Acute Assessment and Plan: As above; no fever recorded while inpatient. (4) Polycythemia: Code(s): D75.1 - Secondary polycythemia Status: Acute Assessment and Plan: Hemoglobin 18.1 admission. ApneaLink essentially normal. Hgb better today. Stop IV fluids. (5) DVT prophylaxis: Code(s): Z29.9 - Encounter for prophylactic measures, unspecified Status: Acute Assessment and Plan: SCDs Subjective Date/time seen: 08/02/21 10:22 S: Patient examined at the bedside. He denies any complaints. He is anxious to go home. 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 Review of Systems Review of Systems: All systems reviewed & are unremarkable except as noted in HPI and below Constitutional: Constitutional: Reports as per HPI and Reports no additional constitutional complaints Eyes: Eyes: Reports as per HPI and Reports no additional eye complaints ENT: Reports system reviewed and no additional complaints, except as documented and Reports Normal hearing present Cardiovascular: Cardiovascular: Reports no additional cardiovascular complaints Respiratory: Respiratory: Reports no additional respiratory complaints and Reports no additional respiratory complaints Gastrointestinal: Gastrointestinal: Reports as per HPI and Reports no additional gastrointestinal complaints Musculoskeletal: Musculoskeletal: Reports no additional musculoskeletal complaints Integumentary/Breasts: Skin/Breast: Reports system reviewed and no additional complaints, except as docu and Reports as per HPI Neurologic: Reports system reviewed and no additional complaints, except as documented, Reports as per HPI and Reports Normal hearing present Psychiatric: Psychiatric: Reports no additional psychiatric complaints and Reports as per HPI Endocrine: Endocrine: Reports no additional endocrine complaints Hematologic/Lymphatic: Hematologic/Lymphatic: Reports no additional hematologic/lymphatic complaints Allergic/Immunologic: Allergic/Immunologic: Reports no additional allergic/immunologic complaints Exam Narrative: AF 98.4F 119/74 76 18 95% on RA. Gen - NARD lying flat in bed Neck - left posterior cervical lymphadenopathy. Chest - CTA bilaterally, nml RR CV - RRR S1/S2. Tele showing occasional bundle branch but very infrequent Abd - Soft, NT/ND, Positive BS
[2021-08-02 14:00] VITALS: BP 132/79; PULSE 72; RESP 20; TEMP 36.4; O2SAT 100
[2021-08-02] MEDS: ACETAMINOPHEN 325 MG TABLET 650 MG PO (22:08)
[2021-08-02 23:30] VITALS: BP 120/75; PULSE 73; RESP 14; TEMP 35.9; O2SAT 98
[2021-08-03 06:01] LABS: Hematocrit 45.1 % (42.0-52.0); Hemoglobin 15.8 g/dL (14.0-18.0); Mean Corpuscular Hemoglobin 32.7 pg (26-34); Mean Corpuscular Volume 93.4 fl (80-100); Mean Platelet Volume 9.5 fl (7.4-10.4); Platelet Count Result 291 k/mm3 (150-375); Red Blood Count 4.83 M/mm3 (4.6-6.20); White Blood Count 17.8 K/mm3 (4.5-10.0)
[2021-08-03 06:28] LABS: Anion Gap 7 mmol/L (8-16); Blood Urea Nitrogen 16 mg/dL (9-20); Calcium 8.3 mg/dL (8.4-10.2); Carbon Dioxide 26 mmol/L (22-30); Chloride 100 mmol/L (98-107); Estimated CRCL calculation 114 ml/min; Estimated Glomerular Filt Rate > 60; Glucose 139 mg/dL (65-110); Potassium 4.2 mmol/L (3.4-5.0); Sodium 133 mmol/L (137-145)
[2021-08-03] MEDS: FAMOTIDINE 20 MG TABLET PO (09:01)
--- NOTE | 2021-08-03 11:35 | PM.DS ---
DS: Admitting Diagnosis Discharge Date 08/03/2021 Admitting Diagnosis Altered mental status. Meningoencephalitis. DS: Discharge Diagnosis Discharge Diagnosis (1) Acute bacterial meningitis: Code(s): G00.9 - Bacterial meningitis, unspecified Status: Acute Assessment and Plan: Patient was appropriately treated for presumptive diagnosis of meningoencephalitis, pending confirmation. LP performed 07/30 showing 72R, 2W (9% N, 75%L, 16%M), nml glucose with protein of 65. Gram stain showing rare gram positive cocci and rare WBCs. Pathology shows few lymphocytes and monocytes but negative for acute inflammation and malignant cells. LP not consistent with bacterial meningitis patient was started on broad-spectrum IV antibiotics for positive Gram stain. CSF culture pending. Blood cultures no growth today. CTA head/neck performed due to the CSF blood but CTA negative for aneurysm or bleed. Continue broad-spectrum IV antibiotics. Dexamethasone to be continued for 4 days unless bacteria something other than S.pneumoniae. Final CSF culture remained negative. Patient was discharged home. (2) Altered mental status: Code(s): R41.82 - Altered mental status, unspecified Status: Acute Assessment and Plan: Resolving. Patient was originally brought to the emergency room because of confusion. Patient had fever prior to admission but not documented here. UA negative. Chest x-ray negative. MR brain showing no acute findings. COVID testing negative. Carotid ultrasound showing less than 50% stenosis. CT neck and chest was negative. Blood cultures are NGTD. Echo EF 60-65%, Grade I diastolic dysfunction. (3) Fever: Code(s): R50.9 - Fever, unspecified Status: Acute Assessment and Plan: As above; no fever recorded while inpatient. (4) Polycythemia: Code(s): D75.1 - Secondary polycythemia Status: Acute Assessment and Plan: Hemoglobin 18.1 admission. ApneaLink essentially normal. Hgb better today. Stop IV fluids. (5) DVT prophylaxis: Code(s): Z29.9 - Encounter for prophylactic measures, unspecified Status: Acute Assessment and Plan: SCDs DS: Summary Hospital Course Reason for hospitalization: Confusion Hospital Course: Please refer to admission H&P. Briefly, this is 56-year-old male who came to the emergency room with altered mental status. The patient self reports fever for the last couple days. 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 The patient got up and went to work today and felt confused when he went to work. The patient stated that he cannot recall what happened to him during the whole work week. The patient was getting loss within his work facility and he has been working there for last 12 years. Patient has no history of any dementia. He has had no sick contacts. H&H is 18.1 and 52.6. COVID testing is pending. Carotid Dopplers less than 50% stenosis in the right and left internal carotid artery. Chest x-ray was read as no acute cardiopulmonary disease. Head CT was read as no acute intracranial findings. The patient was started on IV fluids. The patient does not have a fever and was tested negative for influenza. The patient was admitted and previously treated for presumptive diagnosis of meningoencephalitis. He shows CSF Gram stain was concerning for possible meningitis. All CSF cultures remain negative. Patient was discharged home. He will follow up with Neurology within 5-6 weeks post discharge. Status at Discharge Functional status at discharge: independent ambulation Overall status at discharge: patient is back to baseline Time Spent with Patient Time attestation: Total time spent providing and/or coordinating discharge services:33 minutes. Time spent: Greater than 30 minutes Exam Narrative: Vital signs: BP 120/75, pulse 73, respiration 14, temperature 96.7? F, O2 sat 98% on room air. Gen
[2021-08-03 17:43] LABS: VDRL Quantitative CSF Nonreactive (Nonreactive)
[2021-08-08 19:24] LABS: Cryptococcus Antigen Not Detected (Not Detected); Cryptococcus Specimen Source CSF
== END 2021-08-03 12:45 | disposition home or self-care (01) | DRG 96 ==
LOC: ANHED 14:18 → ANH3MEDSUR 15:24
PROVIDERS: Nurse Practitioner; Admitting Provider Internal Medicine; Emergency Provider Emergency Medicine; Visit Provider Internal Medicine
DX: G00.9 Bacterial meningitis, unspecified (principal); Z20.822 Contact with and (suspected) exposure to COVID-19; D75.1 Secondary polycythemia; Z88.0 Allergy status to penicillin
CPT/HCPCS: 36415; 62328; 70450; 70491; 70496; 70498; 70553; 71045; 71260; 80048; 80053; 80202; 80307; 81003; 82728; 82945; 83605; 83615; 83735; 84157; 84443; 84484; 85025; 85027; 85610; 85730; 86403; 86592; 86617; 87015; 87040; 87070; 87102; 87116; 87206; 87529; 87798; 87804; 88108; 89051; 93005; 93306; 93880; 94762; 96360; 96361; 96365; 96366; 96367; 96375; 96376; 99285; A9270; A9577; C9803; G0378; J0743; J1100; J3370; J7030; J7060; Q9967; U0003; U0005